=== PATIENT | female | born 1955 | race Caucasian/White ===

== ENCOUNTER 2018-06-29 14:27 | Day surgery (SDC) | payer BC, OTHER ==
[2018-06-28 08:31] VITALS: BMI 29.2
--- NOTE | 2018-06-29 16:54 | HP ---
Admitting History and Physical - Primary Care Physician PCP: David Ward (Podiatry) - Admission Chief Complaint: bunion 1st and 5th with multiple hammertoes and pain History of Present Illness: Patient has conditions for many years and they interfere with ability to stand at work. She has requested surgical correction. - Smoking History Smoking history: Former smoker Have you smoked in the past 12 months: No If you are a former smoker, when did you quit?: 10 YEARS AGO - Alcohol/Substance Use Hx Alcohol Use: Yes (SOCIALLY) Home Medications - Allergies Allergies/Adverse Reactions: Allergies Allergy/AdvReac Type Severity Reaction Status Date / Time No Known Allergies Allergy Verified 07/07/11 15:12 - Home Medications Home Medications: Ambulatory Orders Lisinopril 20 mg PO DAILY 06/28/18 Physical Examination Vital Signs: Vital Signs Temperature 98.6 F 06/29/18 15:22 Pulse Rate 94 H 06/29/18 15:22 Respiratory Rate 16 06/29/18 15:22 Blood Pressure 144/91 06/29/18 15:22 O2 Sat by Pulse Oximetry (%) 96 06/29/18 15:22 Extremities: Yes: Other (Right foot hallux extensus with bunion, severe bunion right foot, and multiple hammertoes) Assessment/Plan Assessment Right Hallux extensus with bunion and overlapping toe Right 2nd toe dipj subluxation, abnormal anatomic position Right 3rd toe hammering of pipj Right 4th toe hammering of pipj Right severe abduction of the 5th metatarsal with bunionette Plan Right Jose bunionectomy to solve 3 problems, lateral overlapping of hallux, extensus of hallux, bunion Right Arthroplasty of ipj 2nd, 3rd, 4th toe to remove painful bone prominences at the sites Right 5th metatarsal closing wedge osteotomy to reposition severly abducted 5th metatarsal with possible bunionectomy at the site if needed.
[2018-06-29] MEDS ORDERED: MIDAZOLAM HCL 2 MG/2 ML SINGLE DOSE VIAL ONE ×2 (17:05→17:18)
[2018-06-29] MEDS ORDERED: PROPOFOL 20 ML ONE ×3 (17:05→18:24)
[2018-06-29] MEDS ORDERED: ceFAZolin SODIUM 1 GM VIAL IVPB ONE (17:12)
[2018-06-29] MEDS ORDERED: ceFAZolin SODIUM 1 GM VIAL ONE (17:15)
[2018-06-29] MEDS ORDERED: ONDANSETRON 4 MG/2 ML VIAL ONE (17:17)
[2018-06-29] MEDS ORDERED: DEXAMETHASONE SOD PHOSPHATE 4 MG/1 ML VIAL ONE (17:17)
[2018-06-29] MEDS ORDERED: LIDOCAINE 1%/EPI 1:100000 (20 ML MULTI DOSE VIAL) IJ ONE (17:21)
[2018-06-29] MEDS ORDERED: BUPIVACAINE HCL/PF (5 MG/ML) 30 ML VIAL IJ ONE (17:21)
[2018-06-29] MEDS ORDERED: KETAMINE HCL 200 MG/20 ML VIAL ONE (17:36)
[2018-06-29] MEDS ORDERED: KETOROLAC TROMETHAMINE 30 MG/1 ML VIAL ONE (19:14)
[2018-06-29] MEDS ORDERED: LORazepam 2 MG/ML SDV VIAL IVPUSH ONE (19:29)
[2018-06-29] MEDS ORDERED: ONDANSETRON 4 MG/2 ML VIAL IVPUSH PRN (19:29)
[2018-06-29] MEDS ORDERED: oxyCODONE HCL 5 MG TABLET PO PRN (19:29)
[2018-06-29] MEDS ORDERED: LACTATED RINGERS SOLUTION 1,000 ML IV SCH (19:30)
[2018-06-29] MEDS ORDERED: LORazepam 2 MG/ML SDV VIAL ONE (19:35)
--- NOTE | 2018-06-29 20:36 | OP ---
DATE OF OPERATION: 06/29/2018 SURGEON: David Ward DPM PREOPERATIVE DIAGNOSES: 1. Right bunion with hallux valgus and hallux extensus. 2. Right hammertoe, 2nd, 3rd, and 4th. 3. Metatarsalgia of the right 5th metatarsal. 4. Bunionette of the right 5th metatarsal head. POSTOPERATIVE DIAGNOSES: 1. Right bunion with hallux valgus and hallux extensus. 2. Right hammertoe, 2nd, 3rd, and 4th. 3. Metatarsalgia of the right 5th metatarsal. 4. Bunionette of the right 5th metatarsal head. PROCEDURES: 1. Right Jose bunionectomy with extensor tendon transfer. 2. Arthroplasty of the right 2nd toe distal interphalangeal joint. 3. Arthroplasty of the right 3rd toe proximal interphalangeal joint. 4. Arthroplasty of the right 4th toe proximal interphalangeal joint. 5. Base wedge osteotomy, right 5th metatarsal with 2 Vestal 28 2.0 headed bone screws for fixation. 6. Bunionette resection, right 5th metatarsal head. Under fractional anesthesia and a surgical scrub with Betadine scrub and solution x2, the patient was draped using sterile technique. A right ankle tourniquet was inflated to 250 mmHg pressure for 103 minutes. Inspection of the right foot showed a hallux extensus with a large right bunion, a distal joint lateral subluxation at the distal interphalangeal joint, hammering of the right 3rd and 4th proximal interphalangeal joints, and a large painful bunionette on the right 5th metatarsal. Using a number-15 surgical blade, a linear longitudinal incision was made on the dorsal medial aspect of the right foot over the 1st metatarsophalangeal joint. The incision was deepened through fascia and retracted. The long extensor tendon was longitudinally incised at the extensor moy ligaments and then longitudinally lengthening using Z-plasty technique. The joint capsule was longitudinally incised and reflected, exposing the arthritic 1st metatarsophalangeal joint. Using a bone saw, the medial eminence of the 1st metatarsal head was resected, and the medial eminence was rasped smooth. The same saw was used to resect the base of the proximal phalanx at the flare. Irrigation was performed, and then, joint capsule was cut into 3 flaps and sutured into the 1st metatarsophalangeal joint space using 3-0 Vicryl suture. The extensor moy and extensor tendon now lengthened was reapproximated in normal anatomic position and sutured to the base of the proximal phalanx of the hallux, and then, superficial tissues were reapproximated and closed with 4-0 Vicryl and then skin closed with 4-0 Vicryl and Steri-Strips. Attention was then directed to the distal interphalangeal joint of the right 2nd toe. A linear longitudinal was made at the DIPJ. The skin and subcutaneous tissues were reflected. The joint capsule was cut. The head of the middle phalanx was delivered into the wound and resected using a bone cutting forceps. The wound was irrigated. Capsule was closed with 4-0 Vicryl and then skin and subcutaneous tissues were closed with 4-0 nylon sutures. Attention was then directed to the right 3rd toe proximal interphalangeal joint. A linear longitudinal incision was made at this site. The incision was deepened through fascia and retracted, exposing the joint capsule of the proximal phalanx. It was transversely incised, and then, the head of the proximal phalanx was delivered into the wound and resected using a bone cutting forceps. The wound was irrigated, the joint capsule closed with 4-0 Vicryl, and then skin reapproximated and closed with 4-0 nylon simple interrupted sutures. Attention now directed to the right 4th toe at the proximal interphalangeal joint. The incision was longitudinal and then deepened through fascia and retracted. Joint capsule was transversely incised at the proximal interphalangeal joint. The head of the proximal phalanx was delivered into the wound and resected using bone cutting forceps. Again, irrigation was followed by joint capsule repair using 4-0 Vicryl, and then, skin was repaired with 4-0 nylon simple interrupted sutures. Lastly, a longitudinal incision was made on the dorsal lateral aspect of the right foot over the 5th metatarsal. The 5th metatarsal was significantly deviated and abducted from its normal anatomic position. Following reflection of skin and subcutaneous tissues, a periosteal incision was made longitudinally, and the 5th metatarsal was exposed in the wound. Using a K-wire for a reference point, a V closing base wedge osteotomy was performed at the base of the 5th metatarsal. It was temporarily reduced using a bone clamp and then permanently fixed with Vestal 28 2.0 cortical bone screws. The wound was irrigated with sterile saline. Attention was then directed to the metatarsal head where the lateral surface of the bone was resected, reducing its volume and prominence. The wound was irrigated with sterile saline and then deep tissues were closed with 4-0 Vicryl suture and then skin was closed with 4-0 nylon simple interrupted suture. The ankle tourniquet was deflated after 103 minutes of inflation. Vascular perfusion immediately returned to all 5 digits, so a dry sterile dressing was applied to the right foot. The patient tolerated the surgical procedure well and was discharged to the recovery room stable and alert. ALEXA PERLA/[id number]
[2018-06-29 22:40] VITALS: BP 136/83; PULSE 90; TEMP 98.2
--- NOTE | 2018-07-02 20:45 | PATH ---
Surgical Pathology Report Patient Name: EDWARD STAHL [facility]. Rec. #: [id number] /Age/Gender: 1955 (Age: 63) / F Account: [id number] Location: [facility] SURGICAL Taken: 06/29/2018 Received: 06/30/2018 Reported: 07/02/2018 Physicians: David Ward M.D. Specimen(s) Received A: BASE OF PROXIMAL PHALANX OF HALLUX B: BUNION C: BONE 2ND TOE D: BONE 3RD TOE E: BONE 4TH TOE F: BONE OF 5TH METATARSAL Clinical History Right hallux valgus, hammer toe, bunion, metatarsalgia Final Diagnosis A. HALLUX, BASE OF PROXIMAL PHALANX, HAMMER TOE CORRECTION: BONE WITH DEGENERATIVE CHANGES AND SCANT FIBROCONNECTIVE TISSUE. B. BUNION, BUNIONECTOMY: BONE WITH DEGENERATIVE CHANGES AND SCANT FIBROCONNECTIVE TISSUE. C. BONE, SECOND TOE, ARTHROPLASTY: BONE WITH DEGENERATIVE CHANGES AND SCANT FIBROCONNECTIVE TISSUE. D. BONE, THIRD TOE, ARTHROPLASTY: BONE WITH DEGENERATIVE CHANGES AND SCANT FIBROCONNECTIVE TISSUE. E. BONE, FOURTH TOE, ARTHROPLASTY: BONE WITH DEGENERATIVE CHANGES AND SCANT FIBROCONNECTIVE TISSUE. F. BONE, FIFTH METATARSAL, OSTEOTOMY: BONE WITH DEGENERATIVE CHANGES AND SCANT FIBROCONNECTIVE TISSUE. Electronically Signed Reba Weaver M.D. Gross Description A. Received in formalin labeled "base of proximal phalanx of hallux," is a 1.9 x 1.7 x 1.0 cm garcía portion of bone. Business Services Officer sections are submitted in one cassette, following decalcification. B. Received in formalin labeled "bunion," is a 1.7 x 1.5 x 0.2 cm garcía portion of bone. Business Services Officer sections are submitted in one cassette, following decalcification. C. Received in formalin labeled "bone second toe," is a 1.2 x 0.8 x 0.6 cm garcía portion of bone. A outside sales account representative section is submitted in one cassette, following decalcification. D. Received in formalin labeled "bone third toe," is a 1.1 x 1.0 x 0.6 cm garcía portion of bone. A outside sales account representative section is submitted in one cassette, following decalcification. E. Received in formalin labeled "bone fourth toe," is a 1.0 x 0.7 x 0.6 cm garcía portion of bone. A outside sales account representative section is submitted in one cassette, following decalcification. F. Received in formalin labeled "bone fifth metatarsal," is a 1.5 x 0.9 x 0.4 cm garcía portion of bone. A outside sales account representative section is submitted in one cassette, following decalcification. 06/30/2018 [facility]06/30/2018
== END 2018-06-29 22:30 | disposition home or self-care (01) ==
LOC: JASU-SURG 14:27 → J8W 20:47 → JASU-SURG 22:30
PROVIDERS: ATTEND Podiatrist Foot Surgery
PROC: 0SRP0JZ Replacement of Right Toe Phalangeal Joint with Synthetic Substitute, Open Approach (ICD-10-PCS; 2018-06-29)
PROC: 0QBQ0ZZ Excision of Right Toe Phalanx, Open Approach (ICD-10-PCS; 2018-06-29)
PROC: 0LXV0ZZ Transfer Right Foot Tendon, Open Approach (ICD-10-PCS; 2018-06-29)
PROC: 0QBN0ZZ Excision of Right Metatarsal, Open Approach (ICD-10-PCS; principal; 2018-06-29 16:00)
PROC: 0QSN0ZZ Reposition Right Metatarsal, Open Approach (ICD-10-PCS; 2018-06-29 16:00)
DX: M20.21 Hallux rigidus, right foot (principal); M20.41 Other hammer toe(s) (acquired), right foot; M77.41 Metatarsalgia, right foot; M21.611 Bunion of right foot
CPT/HCPCS: 73630-TC-RT-FY; 88305-TC; 88311-TC; 94760

== ENCOUNTER 2018-10-18 18:05 | Emergency (ER) | payer BC, OTHER ==
[2018-10-18 18:44] VITALS: BP 131/80; PULSE 88; TEMP 98.4; BMI 27.8
--- NOTE | 2018-10-18 18:53 | PDOC ---
History of Present Illness - General Chief Complaint: Sore Throat Stated Complaint: rash History Source: Patient Exam Limitations: No Limitations - History of Present Illness Initial Comments: 10/18/18 18:49 63 yo F with a hx of HTN presents to the emergency department with persistent throat pain since using antibiotics on Oct 13 2018. Per the patient, she was having a sore throat for a few days prior to urgent care presentation. She was prescribed penicillin for 10 days that she has been adherent to. She has taken 6 days worth and states she has persistent sore throat, fever, chills, and a new onset of a rash on her anterior thighs bilaterally. Endorses nausea. Last time she took penicillin was in childhood. Denies the following: visual changes , headaches, chest pain, SOB, abdominal pain, dysuria, hematuria, diarrhea, and leg pain/swelling. No recent travels. Shx: Bunion Allergies: NKDA Past History - Past Medical History Allergies/Adverse Reactions: Allergies Allergy/AdvReac Type Severity Reaction Status Date / Time No Known Allergies Allergy Verified 10/18/18 19:00 Home Medications: Ambulatory Orders Unobtainable 10/18/18 Anemia: No Asthma: No Cancer: No Cardiac Disorders: No CVA: No COPD: No CHF: No Dementia: No Diabetes: No GI Disorders: No Disorders: No HTN: Yes Hypercholesterolemia: No Liver Disease: No Seizures: No Thyroid Disease: No - Surgical History Abdominal Surgery: No Appendectomy: No Cardiac Surgery: No Cholecystectomy: Yes (20 YRS. AGO) Lung Surgery: No Neurologic Surgery: No Orthopedic Surgery: Yes - Suicide/Smoking/Psychosocial Hx Smoking History: Never smoked Have you smoked in the past 12 months: No If you are a former smoker, when did you quit?: 10 YEARS AGO Hx Alcohol Use: No Drug/Substance Use Hx: No Substance Use Type: Alcohol Hx Substance Use Treatment: No *Physical Exam - Vital Signs Last Vital Signs Temp Pulse Resp BP Pulse Ox 98.4 F 88 18 131/80 100 10/18/18 18:42 10/18/18 18:42 10/18/18 18:42 10/18/18 18:42 10/18/18 18:42 Medical Decision Making - Medical Decision Making 10/18/18 18:53 non urticarial rash with sparse distriubtion macules erythematous flesh color on anterior thighs bilaterally. *DC/Admit/Observation/Transfer Diagnosis at time of Disposition: Sore throat - Discharge Dispostion Disposition: HOME Decision to Admit order: No - Referrals Referrals: Selam Bejarano MD [Primary Care Provider] - - Patient Instructions Printed Discharge Instructions: DI for Strep Throat Additional Instructions: you were seen in the emergency department for the evaluation of your sore throat. you urine analysis was negative for infection and your throat is negative for bacterial infection. please continue your antibiotics as prescribed. please return to the emergency department if you have worsening of symptoms or new concerning symptoms such as uncontrollable nausea, vomiting, chest pain, shortness of breath, and inability to swallow. thank you. - Post Discharge Activity Forms/Work/School Notes: Back to Work
[2018-10-18] MEDS ORDERED: DEXAMETHASONE SOD PHOSPHATE 10 MG/1 ML VIAL IM ONE (20:00)
--- NOTE | 2018-10-18 20:25 | PDOC ---
Documentation entered by Brice Duggan SCRIBE, acting as scribe for Jonnathan Azul MD. Jonnathan Azul MD: This documentation has been prepared by the Olga Lidia giordano Matthew, SCRIBE, under my direction and personally reviewed by me in its entirety. I confirm that the documentation accurately reflects all work, treatment, procedures, and medical decision making performed by me. Attending Attestation - Resident Resident Name: Jose Keller - ED Attending Attestation I have performed the following: I have examined & evaluated the patient, The case was reviewed & discussed with the resident, I agree w/resident's findings & plan, Exceptions are as noted - HPI HPI: 10/18/18 19:57 Patient is a 63 year old female with a significant past medical history of HTN, who presents to the ED with complaints of cold like symptoms that began 1 week ago. Pt endorses subjective fevers and chills, sore throat, and body aches. Patient reports going to urgent care last week and was found to be strep positive. She reports being prescribed a 10 day course of penicillin. Pt is on day 6 of antibiotics but states she does not feel any better. Additionally, she notes mild redness to her thighs. Denies chest pain, sob. Denies nausea, vomiting. Denies fevers, chills. Denies contact with sick individuals, out of state travelling. Denies dysuria, hematuria. Denies abdominal pain. Denies constipation, diarrhea. Denies any other symptoms. Allergies: None Social history: Former smoking last 10 years. Social drinker. No illicit drugs. Surgical history: None PMD: Dr. Bejarano - Physicial Exam PE: 10/18/18 20:01 GENERAL: Awake, alert, and fully oriented, in no acute distress. HEAD: No signs of trauma EYES: PERRLA, EOMI, sclera anicteric, conjunctiva clear ENT: Auricles normal inspection, hearing grossly normal, nares patent, oropharynx clear without exudates. Moist mucosa NECK: Nontender, no stepoffs, Normal ROM, supple, no lymphadenopathy, JVD, or masses LUNGS: Breath sounds equal, clear to auscultation bilaterally. No wheezes, and no crackles HEART: Regular rate and rhythm, normal S1 and S2, no murmurs, rubs or gallops ABDOMEN: Soft, nontender, normoactive bowel sounds. No guarding, no rebound. No masses EXTREMITIES: Normal range of motion, no edema. No clubbing or cyanosis. No cords, erythema, or tenderness NEUROLOGICAL: Cranial nerves II through XII intact. 5/5 strength and sensation in all extremities, Normal speech, normal gait, normal cerebellar function SKIN: Warm, Dry, normal turgor, no rashes or lesions noted. - Medical Decision Making 10/18/18 20:24 63 F with pharyngitis, fevers, chills. Was strep positive at and currently on day six of penicillin. Pt is afebrile, welll appearing on exam. No oropharyngeal exudates or erythema. Pt complaining of rash to thighs but no visible rash on exam. - rapid strep - Flu swab - Decadron for pharyngitis 10/18/18 21:39 Strep negative, UA negative Pt is well appearing, with normal vitals. Clinically stable for DC at this time. I discussed the physical exam findings, ancillary test results and final diagnoses with the patient. I answered all of the patient's questions. The patient was satisfied with the care received and felt comfortable with the discharge plan and treatment plan. The patient agrees to follow up with the primary care physician within 24-72 hours.
[2018-10-18] MEDS ORDERED: DEXAMETHASONE SOD PHOSPHATE 10 MG/1 ML VIAL ONE (20:32)
[2018-10-18] MEDS ORDERED: IBUPROFEN 600 MG TABLET (FP) PO ONE ×2 (20:35→20:36)
[2018-10-18 21:30] LABS: PH,URINE 5.5 (5.0-8.0); URINE APPEARANCE CLEAR; URINE BILIRUBIN NEGATIVE (NEGATIVE); URINE COLOR YELLOW; URINE GLUCOSE (UA) NEGATIVE (NEGATIVE); URINE KETONE NEGATIVE (NEGATIVE); URINE LEUK ESTERASE NEGATIVE (NEGATIVE); URINE NITRITE NEGATIVE (NEGATIVE); URINE PROTEIN NEGATIVE (NEGATIVE)
== END 2018-10-18 21:51 | disposition home or self-care (01) ==
LOC: JER 18:05
PROC: 3E023GC Introduction of Other Therapeutic Substance into Muscle, Percutaneous Approach (ICD-10-PCS; principal; 2018-10-18)
DX: J02.9 Acute pharyngitis, unspecified (principal); Z87.891 Personal history of nicotine dependence; I10 Essential (primary) hypertension
CPT/HCPCS: 81003; 87070; 87086; 87804; 87880; 99283-25; J1100

== ENCOUNTER 2019-06-19 00:33 | Emergency (ER) | payer BC, OTHER ==
[2019-06-19 01:32] VITALS: BMI 29.2
--- NOTE | 2019-06-19 02:04 | PDOC ---
History of Present Illness - General Chief Complaint: Pain, Acute Stated Complaint: LEFT FOOT SWELLING,FEVER,CHILLS Time Seen by Provider: 06/19/19 02:03 History Source: Patient Exam Limitations: No Limitations - History of Present Illness Initial Comments: 06/19/19 02:24 64yF w PMHx multiple twila feet surgeries, HTN, GERD, insomnia presenting with 4d worsening L foot pain and swelling. Cannot bear weight on L foot today. Associated fevers, chills. Took excedrin with minimal relief, last use 6pm. Denies foot trauma. Had numerous foot surgeries few years ago with plates/ screws. Past History - Past Medical History Allergies/Adverse Reactions: Allergies Allergy/AdvReac Type Severity Reaction Status Date / Time No Known Allergies Allergy Verified 06/19/19 01:32 Home Medications: Ambulatory Orders Cephalexin [Keflex] 500 mg PO TID #21 capsule 06/19/19 Eszopiclone 1 mg PO HS 06/19/19 Lisinopril 20 mg PO DAILY 06/19/19 Pantoprazole Sodium 40 mg PO DAILY 06/19/19 Anemia: No Asthma: No Cancer: No Cardiac Disorders: No CVA: No COPD: No CHF: No Dementia: No Diabetes: No GI Disorders: Yes (GERD) Disorders: No HTN: Yes Hypercholesterolemia: No Liver Disease: No Seizures: No Thyroid Disease: No - Surgical History Abdominal Surgery: Yes (gall) Appendectomy: No Cardiac Surgery: No Cholecystectomy: Yes (30 YRS. AGO) Lung Surgery: No Neurologic Surgery: No Orthopedic Surgery: Yes - Immunization History Immunization Up to Date: No (no flu shot 2018) - Psycho Social/Smoking Cessation Hx Smoking History: Never smoked Have you smoked in the past 12 months: No If you are a former smoker, when did you quit?: 10 YEARS AGO Hx Alcohol Use: Yes Drug/Substance Use Hx: No Substance Use Type: Alcohol Hx Substance Use Treatment: No Review of Systems - Review of Systems Able to Perform ROS?: Yes Constitutional: No: Chills, Fever HEENTM: No: Eye Pain, Nose Pain, Throat Pain, Mouth Pain Respiratory: No: Cough, Shortness of Breath Cardiac (ROS): No: Chest Pain, Palpitations, Syncope ABD/GI: No: Abdominal Distended, Constipated, Diarrhea, Nausea, Vomiting : No: Burning, Dysuria, Discharge, Hematuria Musculoskeletal: No: Back Pain, Joint Pain Integumentary: No: Bruising, Dryness, Erythema Neurological: No: Headache, Seizure, Tingling Psychiatric: No: Depression, Stressors Endocrine: No: Excessive Sweating, Flushing, Intolerance to Cold, Intolerance to Heat Hematologic/Lymphatic: No: Anemia, Blood Clots *Physical Exam - Vital Signs Last Vital Signs Temp Pulse Resp BP Pulse Ox 98.1 F 112 H 18 154/92 99 06/19/19 01:06/19/19 01:06/19/19 01:06/19/19 01:06/19/19 01:26 - Physical Exam General Appearance: Yes: Nourished, Appropriately Dressed, Mild Distress HEENT: positive: EOMI, EDDY, Normal Voice. negative: Scleral Icterus (R), Scleral Icterus (L), Nasal Congestion Respiratory/Chest: positive: Lungs Clear, Normal Breath Sounds. negative: Chest Tender, Respiratory Distress, Crackles, Rales, Rhonchi, Stridor, Wheezing Cardiovascular: positive: Regular Rhythm, S1, S2, Tachycardia. negative: Murmur Vascular Pulses: Dorsalis-Pedis (R): 1+, Doralis-Pedis (L): 1+ Extremity: positive: Tender (diffuse L foot), Pedal Edema (1+ pitting edema to ankle L foot), Other (normal L foot sensation. not erythematous/warm) Integumentary: positive: Normal Color. negative: Rash Neurologic: positive: Fully Oriented, Alert, Normal Response, Motor Strength 5/ 5 (L foot dorsi/plantarflexion limited d/t pain), Responsive. negative: Numbness, Sensory Deficit, Confused, Disoriented ED Treatment Course - LABORATORY CBC & Chemistry Diagram: 06/19/19 03:00 06/19/19 03:00 Medical Decision Making - Medical Decision Making 06/19/19 02:33 L foot XR shows no gross fracture/subluxation, hardware in place CRP 0.6, normal WBC --- 64yF w PMHx multiple twila feet surgeries, HTN, GERD, insomnia presenting with 4d worsening L foot pain and swelling concerning for MSK vs subacute cellulitis. Low concern for nec fasc (no bony involvement on XR) vs fracture/dislocation ( none visualized on XR). Neurovascular intact Given 4 morphine, ancef. DC home w keflex, PCP f/u Discharge - Discharge Information Problems reviewed: Yes Clinical Impression/Diagnosis: Left foot pain Condition: Good Disposition: HOME - Admission No - Additional Discharge Information Prescriptions: Cephalexin [Keflex] 500 mg PO TID #21 capsule - Follow up/Referral Referrals: Selam Bejarano MD [Primary Care Provider] - - Patient Discharge Instructions - Post Discharge Activity Work/Back to School Note: Back to Work
[2019-06-19] MEDS ORDERED: morphine CARPU-JECT 4 MG/1 ML DISP.SYRIN IVPUSH ONE (02:25)
[2019-06-19] MEDS ORDERED: morphine SULFATE 4 MG/ML VIAL ONE (02:31)
--- NOTE | 2019-06-19 02:49 | PDOC ---
Attending Attestation - Resident Resident Name: Per Madden - ED Attending Attestation I have performed the following: I have examined & evaluated the patient, The case was reviewed & discussed with the resident, I agree w/resident's findings & plan - HPI HPI: 06/19/19 02:49 Wosrsening L foot pain x 4 days 64yF w PMHx multiple twila feet surgeries, HTN, GERD, insomnia presenting with 4d worsening L foot pain and swelling. Cannot bear weight on L foot today. Associated fevers, chills. Took excedrin with minimal relief, last use 6pm. Denies foot trauma. Had numerous foot surgeries few years ago with plates/ screws. - Physicial Exam PE: 06/20/19 06:38 Pt has minimal swelling of bilat feet. Left foot >>right Pt has calluses at the soles of her feet Pt has normal pulses. No sign of fractures. 06/20/19 06:39 Pulses equal and intact bilaterally - Medical Decision Making 06/20/19 06:39 Pt treated with pain meds and she had XRAYS that reveal no fractures and she has normal appearing hardware. Pt will be treated with abx for cellulitis
[2019-06-19 03:47] LABS: BASO % 0.8 % (0-2.0); EOS % 2.5 % (0-4.5); HEMATOCRIT 38.8 % (32.4-45.2); LYMPH % 26.6 % (8-40); MCH 31.4 pg (25.7-33.7); MCHC 33.4 g/dl (32.0-36.0); MEAN PLT VOLUME 7.7 fl (7.5-11.1); MONO % 6.7 % (3.8-10.2); NEUT % 63.4 % (42.8-82.8); PLATELET COUNT 336 K/MM3 (134-434); RBC 4.13 M/mm3 (3.60-5.2); RDW 15.3 % (11.6-15.6)
[2019-06-19 04:13] LABS: ALBUMIN 4.2 g/dl (3.4-5.0); BILIRUBIN,TOTAL 0.3 mg/dL (0.2-1); BLOOD UREA NITROGEN 11.9 mg/dL (7-18); CALCIUM 9.6 mg/dL (8.5-10.1); CREATININE 0.7 mg/dL (0.55-1.3); POTASSIUM 3.9 mmol/L (3.5-5.1); TOT PROT 7.8 g/dl (6.4-8.2)
[2019-06-19 04:14] LABS: N-TERMINAL BNP 63.6 pg/ml (5-125)
[2019-06-19] MEDS ORDERED: ACETAMINOPHEN 1000 MG/100 ML VIAL (NON FORMULARY) IVPB ONE (04:41)
[2019-06-19] MEDS ORDERED: CEFAZOLIN 1 GM in DEXTROSE 5%-WATER - 50 ML IVPB ONE (04:41)
[2019-06-19] MEDS ORDERED: ACETAMINOPHEN INJECTION 100 ML IVPB ONE (05:01)
[2019-06-19] MEDS ORDERED: CEFAZOLIN 1 GM/D5W 1 GM/50 ML BAG ONE (05:02)
[2019-06-19 06:18] VITALS: BP 129/67; PULSE 79; TEMP 98.3
== END 2019-06-19 06:51 | disposition home or self-care (01) ==
LOC: JER 00:33
PROC: 3E03329 Introduction of Other Anti-infective into Peripheral Vein, Percutaneous Approach (ICD-10-PCS; principal; 2019-06-19)
PROC: 3E033NZ Introduction of Analgesics, Hypnotics, Sedatives into Peripheral Vein, Percutaneous Approach (ICD-10-PCS; 2019-06-19)
PROC: 3E033NZ Introduction of Analgesics, Hypnotics, Sedatives into Peripheral Vein, Percutaneous Approach (ICD-10-PCS; 2019-06-19)
DX: L03.116 Cellulitis of left lower limb (principal); L84 Corns and callosities; I10 Essential (primary) hypertension; K21.9 Gastro-esophageal reflux disease without esophagitis; G47.00 Insomnia, unspecified
CPT/HCPCS: 36415; 73610-TC-LT-FY; 73630-TC-LT; 80053; 83880; 85025; 85651; 86140; 87040; 99282-25; J0131

== ENCOUNTER 2019-07-06 17:15 | Emergency (ER) | payer BC, OTHER ==
[2019-07-06 17:29] VITALS: BP 165/89; PULSE 84; TEMP 97.6; BMI 29.2
--- NOTE | 2019-07-06 19:00 | PDOC ---
History of Present Illness - General Chief Complaint: Edema Stated Complaint: EVALUATION Time Seen by Provider: 07/06/19 17:59 - History of Present Illness Initial Comments: 07/06/19 18:58 64-year-old female with a past medical history of acid reflux presents for evaluation of left foot pain. Multiple surgeries on the left foot treated for cellulitis of the left foot about a month ago over the last 2 days developed atraumatic pain and a spontaneous left great toe subungual hematoma. She has difficulty bearing weight no systemic symptoms Past History - Past Medical History Allergies/Adverse Reactions: Allergies Allergy/AdvReac Type Severity Reaction Status Date / Time No Known Allergies Allergy Verified 06/19/19 01:32 Home Medications: Ambulatory Orders Cephalexin [Keflex] 500 mg PO TID #21 capsule 06/19/19 Eszopiclone 1 mg PO HS 06/19/19 Lisinopril 20 mg PO DAILY 06/19/19 Pantoprazole Sodium 40 mg PO DAILY 06/19/19 Anemia: No Asthma: No Cancer: No Cardiac Disorders: No CVA: No COPD: No CHF: No Dementia: No Diabetes: No GI Disorders: Yes (GERD) Disorders: No HTN: Yes Hypercholesterolemia: No Liver Disease: No Seizures: No Thyroid Disease: No - Surgical History Abdominal Surgery: Yes (gall) Appendectomy: No Cardiac Surgery: No Cholecystectomy: Yes (30 YRS. AGO) Lung Surgery: No Neurologic Surgery: No Orthopedic Surgery: Yes - Immunization History Immunization Up to Date: No (no flu shot 2018) - Psycho Social/Smoking Cessation Hx Smoking History: Former smoker Have you smoked in the past 12 months: No If you are a former smoker, when did you quit?: 2007 Information on smoking cessation initiated: No Hx Alcohol Use: No Drug/Substance Use Hx: No Substance Use Type: Alcohol Hx Substance Use Treatment: No Review of Systems - Review of Systems Musculoskeletal: Yes: See HPI, Joint Pain *Physical Exam - Vital Signs Last Vital Signs Temp Pulse Resp BP Pulse Ox 97.6 F 84 18 165/89 97 07/06/19 17:21 07/06/19 17:21 07/06/19 17:21 07/06/19 17:21 07/06/19 17:21 - Physical Exam 07/06/19 18:58 Mild dorsal swelling of the left foot no gross sensorimotor deficits normal skin color and temperature mild sensitivity no induration or areas of fluctuance. Diffuse tenderness about the medial aspect of the left foot surgical scars are well-healed ED Treatment Course - RADIOLOGY Radiology Studies Ordered: Category Date Time Status FOOT-LEFT [RAD] Stat Radiology 07/06/19 18:34 Taken Medical Decision Making - Medical Decision Making 07/06/19 18:59 X-rays of the left foot show multiple areas of surgical hardware. There appears to be some lucency at the most proximal screw in the first metatarsal as well as the screw in the cuneiform going into the second metatarsal I will send her back to podiatry she may weight-bear as tolerated with crutches however she has refused crutches Discharge - Discharge Information Problems reviewed: Yes Clinical Impression/Diagnosis: Left foot pain Condition: Stable Disposition: HOME - Admission No - Follow up/Referral Referrals: ON STAFF,NOT [Primary Care Provider] - David Ward MD [Staff Physician] - - Patient Discharge Instructions Additional Instructions: Weight-bear as tolerated with crutches follow-up with podiatry in 1 to 2 days for further evaluation and treatment options and return to the emergency room for worsening symptoms. Without fail follow-up with your podiatric surgeon in 1 to 2 days. - Post Discharge Activity Work/Back to School Note: Back to Work
== END 2019-07-06 20:04 | disposition home or self-care (01) ==
LOC: JERFT 17:15
DX: M79.675 Pain in left toe(s) (principal); Z98.890 Other specified postprocedural states; I10 Essential (primary) hypertension; K21.9 Gastro-esophageal reflux disease without esophagitis
CPT/HCPCS: 73630-TC-LT; 99281-25

== ENCOUNTER 2023-08-17 03:53 | Day surgery (SDC) | payer OTHER, BC ==
[2023-08-13 09:39] VITALS: BMI 31.1
[2023-08-17] MEDS ORDERED: BUPIVACAINE HCL/PF 0.25% (2.5MG/ML) 10 ML VIAL ONE (11:17)
[2023-08-17] MEDS ORDERED: BUPIVACAINE HCL/PF 0.5% (5MG/ML) 10 ML VIAL ONE (11:18)
[2023-08-17] MEDS ORDERED: BETAMET ACET/BETAMET NA PH 30 MG/5 ML VIAL ONE (11:18)
[2023-08-17] MEDS ORDERED: LIDOCAINE HCL/PF 1% SDV 5ML VIAL ONE (11:18)
[2023-08-17 11:26] VITALS: RESP 20
[2023-08-17] MEDS ORDERED: DEXAMETHASONE SOD PHOSPHATE 10 MG/1 ML VIAL ONE (12:19)
[2023-08-17] MEDS: DEXAMETHASONE SOD PHOSPHATE 10 MG/1 ML VIAL IM ONE (13:53)
[2023-08-17] MEDS: BUPIVACAINE HCL/PF 0.25% (2.5MG/ML) 10 ML VIAL IJ ONE (13:53)
[2023-08-17] MEDS: LIDOCAINE HCL 1% PRESERVATIVE FREE - 30ML VIAL NR ONE (13:53)
[2023-08-17] MEDS: IOHEXOL 180 MG/1 ML ML IJ ONE (13:53)
[2023-08-17] MEDS ORDERED: MIDAZOLAM HCL 2 MG/2 ML SINGLE DOSE VIAL ONE ×2 (14:17→14:18)
[2023-08-17 14:51] VITALS: TEMP 97.3
[2023-08-17 15:46] VITALS: BP 136/94; PULSE 67
== END 2023-08-17 16:33 | disposition home or self-care (01) ==
LOC: JASU-SURG 03:53
PROVIDERS: ATTEND Physical Medicine & Rehabilitation
PROC: 3E0R3BZ Introduction of Anesthetic Agent into Spinal Canal, Percutaneous Approach (ICD-10-PCS; 2023-08-17)
PROC: 3E0R33Z Introduction of Anti-inflammatory into Spinal Canal, Percutaneous Approach (ICD-10-PCS; principal; 2023-08-17 13:30)
DX: M54.16 Radiculopathy, lumbar region (principal)
CPT/HCPCS: 76000-TC-FY; J1100